=== PATIENT | female | born 1990 | race Two or more races ===

== ENCOUNTER 2019-04-18 05:41 | Day surgery (SDC) | payer MEDICAID ==
[~2019-04-18] VITALS: Ht 165.1 cm; Wt 86.2 kg
[~2019-04-18 05:41] MED LIST: OMEP20CA5 PO
[2019-04-18] MEDS ORDERED: LACTATED RINGERS 1,000 ML IV SCH (06:30)
[2019-04-18] MEDS ORDERED: FENTANYL CITRATE/PF 50MCG/ML 2ML VIAL ONE (06:48)
[2019-04-18] MEDS ORDERED: MIDAZOLAM HCL 2 MG/2 ML VIAL ONE (06:49)
[2019-04-18] MEDS ORDERED: LIDOCAINE HCL/PF 1% 10 MG/ML 5ML VIAL ONE (06:49)
[2019-04-18] MEDS ORDERED: PROPOFOL 200MG/20ML VIAL IV ONE (06:49)
[2019-04-18] MEDS ORDERED: SODIUM CHLORIDE 0.9% 10ML VIAL ONE ×2 (06:49→06:54)
[2019-04-18] MEDS ORDERED: CEFAZOLIN SODIUM 1000MG/VIAL ONE ×2 (06:49→07:47)
[2019-04-18] MEDS ORDERED: EPHEDRINE SULFATE 50MG/ML VIAL ONE (06:54)
[2019-04-18] MEDS ORDERED: BUPIVACAINE HCL 0.5% (5MG/ML) 50ML ONE (07:05)
[2019-04-18 07:08] LABS: UCG SCREEN NEGATIVE
[2019-04-18] MEDS ORDERED: DEXAMETHASONE 4MG/ML 1ML VIAL ONE (07:18)
[2019-04-18] MEDS ORDERED: METOCLOPRAMIDE HCL 10MG/2ML VIAL ONE (07:19)
[2019-04-18] MEDS ORDERED: ONDANSETRON HCL 4MG/2ML INJ ONE (07:19)
[2019-04-18] MEDS ORDERED: SUCCINYLCHOLINE CHLORIDE 200MG/10ML IV ONE (07:28)
[2019-04-18] MEDS ORDERED: ROCURONIUM BROMIDE 10MG/ML VIAL 5ML IV ONE (07:28)
[2019-04-18] MEDS ORDERED: GLYCOPYRROLATE 0.2 MG/ML 2ML VIAL ONE (08:02)
[2019-04-18] MEDS ORDERED: NEOSTIGMINE METHYLSULFATE 1MG/ML 10 ML VIAL ONE (08:02)
[2019-04-18] MEDS ORDERED: TERBUTALINE SULFATE 1MG/ML VIAL ONE (08:05)
[2019-04-18] MEDS ORDERED: BUPIVACAINE HCL/EPINEPHRINE 0.5%/0.0005 30ML ONE (08:08)
[2019-04-18] MEDS ORDERED: TRINESSA PO (08:11)
[2019-04-18] MEDS ORDERED: FLUT9.9S NS (08:11)
[2019-04-18] MEDS ORDERED: ALBU18HF2 IH (08:11)
[2019-04-18] MEDS ORDERED: IBUP-2028 PO (08:11)
[2019-04-18] MEDS ORDERED: SKIN ADHESIVE 0.7 GM EA TOP ONE (08:21)
[2019-04-18] MEDS ORDERED: HYDROMORPHONE HCL/PF 2MG/ML CPJ IV PRN (09:00)
[2019-04-18] MEDS ORDERED: HYDROCODONE/ACETAMINOPHEN 5/325MG TABLET PO PRN (09:15)
[2019-04-18 09:25] VITALS: BP 122/67
== END 2019-04-18 11:10 | disposition home or self-care (01) ==
LOC: OR 05:41
PROVIDERS: ATTEND Surgery
DX: L72.11 Pilar cyst (principal); K21.9 Gastro-esophageal reflux disease without esophagitis; F41.9 Anxiety disorder, unspecified
CPT/HCPCS: 11423; 81025; 88304; J0171; J0330; J0690; J1100; J2250; J2405; J2704; J2710; J2765; J3010; J3105; J3490